=== PATIENT | female | born 1965 | race Caucasian/White ===

== ENCOUNTER 2017-08-19 12:54 | Emergency (ER) | payer OTHER ==
[2017-08-19 13:07] VITALS: BP 181/94
--- NOTE | 2017-08-19 14:35 | EDM.PDOC ---
ED HPI GENERAL MEDICAL PROBLEM - General Chief Complaint: MOVER HELPER Problem Stated Complaint: HEAVY MENSTRUAL BLEEDING Time Seen by Provider: 08/19/17 13:13 Source of Information: Reports: Patient, RN Notes Reviewed - History of Present Illness INITIAL COMMENTS - FREE TEXT/NARRATIVE: 52-year-old female comes in with abnormal vaginal bleeding. This started several days ago but became worse last evening, through the night and this morning. She states she had a "gush of blood and clots about 1-2 hours ago". She has changed several pads this past morning. She does not feel weak dizzy or lightheaded. She has been having occasional achy take cramps of the right lower pelvis in particular with some radiation to her back. No chest pain or difficulty breathing. No shoulder discomfort. No unusual weakness, lightheadedness or dizziness. She states her last menstrual period prior to this was about 7 months ago and that they had been quite irregular leading up to that time. States she has not seen a doctor or had a pelvic exam for about 20 years. Lower Abdominal Pain Score (Numeric/FACES): 6 - Related Data Allergies Allergy/AdvReac Type Severity Reaction Status Date / Time No Known Allergies Allergy Verified 08/19/17 13:03 Home Meds: Home Meds Metoprolol Tartrate 100 mg PO DAILY 08/19/17 [History] Potassium Chloride 10 meq PO DAILY 08/19/17 [History] Triamterene/Hydrochlorothiazid [Triamterene-HCTZ 37.5-25 MG] 1 tab PO DAILY [History] Past Medical History Cardiovascular History: Reports: Hypertension - Past Surgical History Female Surgical History: Reports: Tubal Ligation Social & Family History - Tobacco Use Smoking Status *Q: Current Every Day Smoker Years of Tobacco use: 30 Packs/Tins Daily: 1 - Recreational Drug Use Recreational Drug Use: No ED ROS GENERAL - Review of Systems Review Of Systems: See Below Constitutional: Denies: Fever, Chills HEENT: Denies: Throat Pain Respiratory: Denies: Shortness of Breath Cardiovascular: Denies: Chest Pain GI/Abdominal: Reports: Abdominal Pain (Achy lower abdominal and pelvic discomfort and cramping) : Reports: Other (Vaginal bleeding for 4 days, heavier yesterday and today with clots today) Musculoskeletal: Reports: No Symptoms Skin: Reports: No Symptoms Neurological: Reports: No Symptoms ED EXAM, RENAL/ - Physical Exam Exam: See Below General Appearance: Alert, No Apparent Distress Throat/Mouth: Normal Inspection, Normal Oropharynx Head: No: Facial Swelling Neck: Supple, Full Range of Motion Respiratory/Chest: No Respiratory Distress, Lungs Clear, Normal Breath Sounds Cardiovascular: Regular Rate, Rhythm GI/Abdominal: Soft, Non-Tender. No: Guarding, Rebound (Female) Exam: Vaginal Bleeding (There is start blood in the posterior vaginal vault, no clots, looks like there is some degree of bladder prolapse present, uterus does seem to be mildly enlarged, she does have some right adnexal tenderness.) Extremities: Normal Inspection, Normal Range of Motion Neurological: Alert, Oriented, No Motor/Sensory Deficits Skin Exam: Warm, Dry, Normal Color Course - Vital Signs Last Recorded V/S: Last Vital Signs Temp 97.2 F 08/19/17 13:04 Pulse 88 08/19/17 13:04 Resp BP 181/94 H 08/19/17 13:04 Pulse Ox 98 08/19/17 13:04 - Orders/Labs/Meds Labs: Laboratory Tests 08/19/17 08/19/17 Range/Units 13:30 13:30 WBC 12.32 H (3.98-10.04) K/mm3 RBC 4.33 (3.98-5.22) M/mm3 Hgb 13.7 (11.2-15.7) gm/L Hct 40.6 (34.1-44.9) % MCV 93.8 (79.4-94.8) fl MCH 31.6 (25.6-32.2) pg MCHC 33.7 (32.2-35.5) g/dl RDW Std Deviation 43.6 (36.4-46.3) fL Plt Count 284 (182-369) K/mm3 MPV 10.0 (9.4-12.3) fl Neut % (Auto) 78.1 H (34.0-71.1) % Lymph % (Auto) 14.0 L (19.3-51.7) % [place] % (Auto) 7.0 (4.7-12.5) % Eos % (Auto) 0.6 L (0.7-5.8) Baso % (Auto) 0.2 (0.1-1.2) % Neut # (Auto) 9.63 H (1.56-6.13) K/mm3 Lymph # (Auto) 1.72 (1.18-3.74) K/mm3 [place] # (Auto) 0.86 H (0.24-0.36) K/mm3 Eos # (Auto) 0.07 (0.04-0.36) K/mm3 Baso # (Auto) 0.03 (0.01-0.08) K/mm3 Sodium 139 (136-145) mEq/L Potassium 3.1 L (3.5-5.1) mEq/L Chloride 104 (98-107) mEq/L Carbon Dioxide 24 (21-32) mEq/L Anion Gap 14.1 (5-15) BUN 10 (7-18) mg/dL Creatinine 0.8 (0.55-1.02) mg/dL Est Cr Clr Drug Dosing 78.76 mL/min Estimated GFR (MDRD) > 60 (>60) mL/min BUN/Creatinine Ratio 12.5 L (14-18) Glucose 108 H (74-106) mg/dL Calcium 9.0 (8.5-10.1) mg/dL Total Bilirubin 0.6 (0.2-1.0) mg/dL AST 10 L (15-37) U/L ALT 13 L (14-59) U/L Alkaline Phosphatase 69 (46-116) U/L Total Protein 6.8 (6.4-8.2) g/dl Albumin 3.7 (3.4-5.0) g/dl Globulin 3.1 gm/dL Albumin/Globulin Ratio 1.2 (1-2) Departure - Departure Time of Disposition: 14:49 Disposition: Home, Self-Care 01 Condition: Fair Clinical Impression: Dysfunctional uterine bleeding - Discharge Information Instructions: Dysfunctional Uterine Bleeding Referrals: PCP,Not In Area [Primary Care Provider] - Forms: ED Department Discharge
== END 2017-08-19 15:30 | disposition home or self-care (01) ==
LOC: JD.ED 12:54
DX: N93.8 Other specified abnormal uterine and vaginal bleeding (principal); F17.210 Nicotine dependence, cigarettes, uncomplicated; I10 Essential (primary) hypertension; Z98.51 Tubal ligation status; Z79.899 Other long term (current) drug therapy
CPT/HCPCS: 36415; 80053; 85025; 99283; 99284

== ENCOUNTER → 2017-11-24 | Day surgery (SDC) | payer OTHER ==
[~2017-11-24] MED LIST: Acetaminophen/oxyCODONE 325-5 MG Tab PO ONE; Dexamethasone 4 MG/ML 5 ML MDV ONE; HYDROmorphone 0.5 MG/0.5 ML Syringe IVPUSH PRN; HYDROmorphone 1 MG/ML Syringe ONE; Hydrochlorothiazide/Triamterene 25-37.5 MG Cap PO SCH; Ketorolac 30 MG/ML SDV ONE; Lactated Ringers 1,000 ML IV SCH; Lactated Ringers 1,000 ML ONE; Lidocaine 1% 4 ML ONE; Lidocaine 1% with EPINEPHrine 1:100,000 20 ML MDV ONE; Lidocaine 1%/Sod Bicarbonate in NS 8.4% 1 ML Syringe IV PRN; METOPROLOL SUCCINATE 100 MG PO SCH; Metoprolol Tartrate 100 MG Tab PO SCH; Midazolam 1 MG/ML 2 ML SDV IVPUSH PRN; Midazolam 1 MG/ML 2 ML SDV ONE; Neostigmine Methylsulfate 1 MG/ML 5 ML Syringe ONE; Ondansetron 4 MG/2 ML SDV IVPUSH PRN; Ondansetron 4 MG/2 ML SDV ONE; Phenylephrine 1 MG in Sodium Chloride 0.9% 10 ML IV SCH; Potassium Chloride 10 MEQ Tab.ER PO SCH; Propofol 200 MG/20 ML SDV ONE; Rocuronium 50 MG/5 ML Vial ONE; Sodium Chloride 0.9% 10 ML Syringe FLUSH PRN; Sodium Chloride 0.9% 50 ML SDV ONE; ceFAZolin 1 GM Vial ONE; diphenhydrAMINE 50 MG/ML SDV IVPUSH PRN; ePHEDrine 50 MG/ML SDV IVPUSH PRN; ePHEDrine/Normal Saline 25 MG/5 ML Syringe ONE; fentaNYL 100 MCG/2 ML SDV IVPUSH PRN; fentaNYL 250 MCG/5 ML SDV ONE
[2017-11-24] MEDS: Lactated Ringers 1,000 ML IV SCH ×2 (06:55→12:57)
--- NOTE | 2017-11-24 07:24 | PCM.PREANE ---
Preanesthetic Assessment - Anesthesia/Transfusion/Family Hx Anesthesia History: Prior Anesthesia Without Reaction Family History of Anesthesia Reaction: No Transfusion History: No Prior Transfusion(s) Intubation History: Unknown - Review of Systems General: No Symptoms Pulmonary: No Symptoms (history of asthma/ smokes 1-2 packs/day times 30 years( 2016 quit)) Cardiovascular: No Symptoms (History of HTN), Palpitations (z), Dyspnea on Exertion Gastrointestinal: No Symptoms (GERD) Neurological: No Symptoms, Tingling (hand and feet at times) Other: Reports: Easy Bruising, Sinus Problem (sinus infections on occasion.) - Physical Assessment NPO Status Date: 11/23/17 NPO Status Time: 23:00 Pulse: 64 O2 Sat by Pulse Oximetry: 95 Respiratory Rate: 18 Blood Pressure: 155/91 Temperature: 37.5 C Height: 1.65 m Weight: 71.668 kg ASA Class: 2 Mental Status: Alert & Oriented x3 Airway Class: Mallampati = 2 Dentition: Reports: Normal Dentition, Caries Thyro-Mental Finger Breadths: 3 Mouth Opening Finger Breadths: 3 ROM/Head Extension: Full Lungs: Clear to Auscultation, Normal Respiratory Effort Cardiovascular: Regular Rate, Regular Rhythm, No Murmurs - Imaging/EKG Impressions: EKG: SRrate=64, anteroseptal infarct, old Q waves in V1 and V2, QT mildly prolonged - Allergies Allergies/Adverse Reactions: Allergies Allergy/AdvReac Type Severity Reaction Status Date / Time No Known Allergies Allergy Verified 11/20/17 13:03 - Anesthesia Plan Pre-Op Medication Ordered: Beta Tono Beta Tono: Metoprolol Med Last Dose Date: 11/24/17 Med Last Dose Time: 05:15 - Acknowledgements Anesthesia Type Planned: General Anesthesia Pt an Appropriate Candidate for the Planned Anesthesia: Yes Alternatives and Risks of Anesthesia Discussed w Pt/Guardian: Yes Pt/Guardian Understands and Agrees with Anesthesia Plan: Yes PreAnesthesia Questionnaire HEENT History: Reports: Impaired Vision Cardiovascular History: Reports: Hypertension Respiratory History: Reports: Asthma Gastrointestinal History: Reports: None Genitourinary History: Reports: None 3D DESIGNER History: Reports: Other (See Below) Other OB/BYN History: endometrial biopsy, abnormal menstrual bleeding, abdnormal perimenopausal bleeding Musculoskeletal History: Reports: None Neurological History: Reports: None Psychiatric History: Reports: None Endocrine/Metabolic History: Reports: None Hematologic History: Reports: None Immunologic History: Reports: None Oncologic (Cancer) History: Reports: None Dermatologic History: Reports: None - Past Surgical History Head Surgeries/Procedures: Reports: None HEENT Surgical History: Reports: Oral Surgery, Tonsillectomy Cardiovascular Surgical History: Reports: None Respiratory Surgical History: Reports: None GI Surgical History: Reports: None Female Surgical History: Reports: Tubal Ligation Endocrine Surgical History: Reports: None Neurological Surgical History: Reports: None Musculoskeletal Surgical History: Reports: None Oncologic Surgical History: Reports: None Dermatological Surgical History: Reports: None - SUBSTANCE USE Smoking Status *Q: Former Smoker Recreational Drug Use History: No - HOME MEDS Home Medications: Home Meds Metoprolol Tartrate 100 mg PO DAILY 08/19/17 [History] Potassium Chloride 10 meq PO DAILY 08/19/17 [History] Triamterene/Hydrochlorothiazid [Triamterene-HCTZ 37.5-25 MG] 1 tab PO DAILY [History] Ibuprofen [Ibuprofen] 800 mg PO TID PRN 11/20/17 [History] - CURRENT (IN HOUSE) MEDS Current Meds: Current Medications Lactated Ringer's (Ringers, Lactated) 1,000 mls @ 125 mls/hr IV ASDIRECTED VALDEZ Stop: 11/24/17 18:00 Lidocaine/Sodium Bicarbonate (Buffered Lidocaine 1% In Ns 8.4%) 0.25 ml IV ONETIME PRN PRN Reason: Prior to IV Start Stop: 11/24/17 18:00 Sodium Chloride (Saline Flush) 10 ml FLUSH ASDIRECTED PRN PRN Reason: Keep Vein Open Stop: 11/24/17 18:00 Discontinued Medications Cefazolin Sodium (Ancef) Confirm Administered Dose 2 gm .ROUTE .STK-MED ONE Stop: 11/24/17 06:38 Dexamethasone (Dexamethasone) Confirm Administered Dose 20 mg .ROUTE .STK-MED ONE Stop: 11/24/17 06:38 Fentanyl (Sublimaze) Confirm Administered Dose 250 mcg .ROUTE .STK-MED ONE Stop: 11/24/17 06:40 Hydromorphone HCl (Dilaudid) Confirm Administered Dose 1 mg .ROUTE .STK-MED ONE Stop: 11/24/17 06:39 Lidocaine HCl (Xylocaine-Mpf 1%) Confirm Administered Dose 4 mls @ as directed .ROUTE .STK-MED ONE Stop: 11/24/17 06:38 Lactated Ringer's (Ringers, Lactated) Confirm Administered Dose 1,000 mls @ as directed .ROUTE .STK-MED ONE Stop: 11/24/17 06:38 Ketorolac Tromethamine (Toradol) Confirm Administered Dose 30 mg .ROUTE .STK- MED ONE Stop: 11/24/17 06:38 Midazolam HCl (Versed 1 Mg/Ml) Confirm Administered Dose 2 mg .ROUTE .STK-MED ONE Stop: 11/24/17 06:40 Ondansetron HCl (Zofran) Confirm Administered Dose 4 mg .ROUTE .STK-MED ONE Stop: 11/24/17 06:38 Propofol (Diprivan 20 Ml) Confirm Administered Dose 200 mg .ROUTE .STK-MED ONE Stop: 11/24/17 06:39 Rocuronium [place] (Zemuron) Confirm Administered Dose 50 mg .ROUTE .STK-MED ONE Stop: 11/24/17 06:38
--- NOTE | 2017-11-24 11:07 | PCM.POSTAN ---
POST ANESTHESIA ASSESSMENT - MENTAL STATUS Mental Status: Alert - VITAL SIGNS Pulse Rate: 59 SaO2: 97 Resp Rate: 10 Blood Pressure: 119/60 Temperature: 36.5 C - RESPIRATORY Respiratory Status: Respiratory Rate WNL, Airway Patent, O2 Saturation Stable, Supplemental Oxygen - CARDIOVASCULAR CV Status: Pulse Rate WNL, Blood Pressure Stable - GASTROINTESTINAL GI Status: No Symptoms - POST OP HYDRATION Hydration Status: Adequate & Stable
--- NOTE | 2017-11-24 11:23 | PCM.OPNOTE ---
- General Post-Op/Procedure Note Date of Surgery/Procedure: 11/24/17 Operative Procedure(s): Total vaginal hysterectomy bilateral salpingo- oophorectomy 46844. Anterior-posterior colporrhaphy [id number] Pre Op Diagnosis: Abnormal uterine bleeding, abnormal perimenopausal bleeding, cystocele and rectocele with incomplete uterine prolapse. Post-Op Diagnosis: Same Anesthesia Technique: General ET Tube Primary Surgeon: Zander Olivares Secondary Surgeon: Srikanth Clement Anesthesia Provider: Mikayla Sosa Reason Lab Support Service Tech Was Necessary: Retraction, decrease comorbidity and co-mortality Role of Lab Support Service Tech: Retraction, decrease comorbidity and co-mortality Fluid Replacement, Intraop: 1,000 Output, Urine Amount: 125 EBL in mLs: 100 Drain/Tube Comments:: None Complications: None Condition: Good Free Text/Narrative:: Patient was transported to operating room #2 and placed under general anesthesia with endotracheal intubation the low dorsal lithotomy position. Prepared and draped in a sterile fashion. Examination under anesthesia had revealed incomplete uterine relaxation with cystocele and rectocele. SCDs in place and functioning prior surgery. Ancef 2 g given intravenously prior surgery. Timeout performed confirming name, date of , and procedure as total vaginal hysterectomy bilateral salpingo-oophorectomy anterior-posterior and posterior colporrhaphy. The cervix was injected with 20 mL of 0.25% lidocaine with epinephrine and multiple confluent areas around the cervix. Circumscribing the cervix with a sharp blade. Posterior colpotomy was performed. Grasping the uterosacral cardinal ligament bundle with the LigaSure crossclamping activating and incising on the left side and then right side and alternating proceeding cephalad crossclamping activating and incising until the triple pedicle was approximated crossclamped activated and incised removing the cervix and uterus. The anterior colpotomy was accomplished after crossclamping activating and incising the uterosacral cardinal ligament bundle's. The left tube and ovary identified (patient had had previous tubal ligation) remaining portion the left tube and ovary removed by crossclamping the infundibulopelvic ligament activating and incising with LigaSure. Same procedure was carried out on the right side. Hemostasis was complete no active bleeding the posterior vaginal cuff was closed running locking suture of 0 Monocryl. The anterior vaginal mucosa was grasped with 2 Allis clamps and 5 mL of 0.25% lidocaine with epinephrine injected for hydrodissection of the tissue so mucosa. The bladder was drained of 125 mL of urine. Incising with Metzenbaum scissors to the urethrovesical angle and incising the left and right laterally at the vaginal mucosa edge to develop a plane 2 reduced the cystocele. sutures of 0 Monocryl placed at the urethrovesical angle and 3 additional sutures placed proceeding towards the vaginal cuff. The cystocele was reduced without difficulty. Having reduced the cystocele the redundant vaginal mucosa was excised and the vaginal mucosa was approximated with 3-0 Monocryl running suture. The anterior vaginal mucosa was then approximated to the posterior vaginal mucosa with running, locking suture of 0 Monocryl. Sponge needle pack instrument and sharp count correct 2 prior to closure of the vaginal mucosa anteriorly and posteriorly. The posterior colporrhaphy was then performed by grasping at approximately 5 and 6:00 at the introitus with Allis clamps and injecting 15 mL of 0.25% lidocaine with epinephrine for hydrodissection and postoperative pain management. A "peterson" shaped incision made with a #15 blade removing the excess tissue at the perineal body and introitus, undermining with Metzenbaum scissors to the apex of the rectocele approximately one half of the way up the vaginal canal. The planes were obtained with Metzenbaum scissors and pushing the rectocele posteriorly it was reduced without difficulty plication sutures of 0 Monocryl placed and the rectocele was reduced and the perineoplasty was completed with subcuticular suturing of 3-0 Monocryl. The vaginal mucosa was also closed with 3-0 Monocryl running suture. No blood transfusions were required patient tolerated the procedure well prior to transport to postanesthesia care unit 120 mL of this water instilled into the bladder to assist in voiding postop. I talked with the patient's and son all questions answered voiced satisfaction. Given prescription for Percocet 5/325 dispense 20 sig 1-2 by mouth every 6-8 hours when necessary pain, also Zofran and ODT 4 mg sublingual every 4 hours when necessary nausea dispense 20, Colace 100 mg twice a day dispense 60 take for 1 full month.
--- NOTE | 2017-11-24 11:43 | PCM48HPAN ---
Post Anesthesia Note - EVALUATION WITHIN 48HRS OF ANESTHETIC Vital Signs in Normal Range: Yes Patient Participated in Evaluation: Yes Respiratory Function Stable: Yes Airway Patent: Yes Cardiovascular Function Stable: Yes Hydration Status Stable: Yes Pain Control Satisfactory: Yes Nausea and Vomiting Control Satisfactory: Yes Mental Status Recovered: Yes
--- NOTE | 2017-11-24 16:30 | PCM.SN ---
- Free Text/Narrative Note: DOS Afebrile. Acute urinary retention. Urecholine 10 m g hourly until 1700 (6 doses ) then 10 mg po at 2300 and 0500. Bladder scan after each voiding and if >150 ml straight (in and out) cath. KVO IV. Routine VS. Regular diet. Alternate Motrin 600 mg po q6h and Percocet 5/325 1-2 po q6h. Colace 100 mg now and has the bid.
[2017-11-24] MEDS: Ibuprofen 600 MG Tab PO PRN (17:49)
[2017-11-24] MEDS: Acetaminophen/oxyCODONE 325-5 MG Tab PO PRN (20:57)
[2017-11-24] MEDS: Docusate Sodium 100 MG Cap PO SCH (20:57)
[2017-11-24] MEDS: Aluminum Hydroxide/Magnesium Hydroxide/Simethicone Susp 30 ML Cup PO PRN (22:33)
[2017-11-25] MEDS: Ibuprofen 600 MG Tab PO PRN ×2 (00:27→05:52)
[2017-11-25] MEDS: Acetaminophen/oxyCODONE 325-5 MG Tab PO PRN ×2 (03:26→10:14)
[2017-11-25 08:21] VITALS: BP 123/93
[2017-11-25] MEDS: Docusate Sodium 100 MG Cap PO SCH (10:13)
--- NOTE | 2017-11-25 10:19 | PCM.SN ---
- Free Text/Narrative Note: Patient extended floor recovery. Voiding now. Will dismiss and has follow up in clinic 2 weeks.
[2017-11-25] MEDS: Aluminum Hydroxide/Magnesium Hydroxide/Simethicone Susp 30 ML Cup PO PRN (10:37)
== END | disposition home or self-care (01) ==
LOC: JD.SDS 06:46
PROVIDERS: ATTEND Obstetrics & Gynecology
DX: N84.0 Polyp of corpus uteri (principal); N83.8 Other noninflammatory disorders of ovary, fallopian tube and broad ligament; N81.2 Incomplete uterovaginal prolapse; I10 Essential (primary) hypertension; Z79.2 Long term (current) use of antibiotics; Z98.51 Tubal ligation status; F17.210 Nicotine dependence, cigarettes, uncomplicated
CPT/HCPCS: 36415; 51798; 57260; 58262; 80053; 84702; 85025; 86850; 86900; 86901; 93005; A9270; J0690; J1100; J1170; J1885; J2250; J2405; J2710; J3010; J7050; J7120; 00942; J2001; J2704

== ENCOUNTER 2022-02-24 18:40 | Emergency (ER) | payer BC ==
[2022-02-24 19:48] VITALS: BP 174/102; PULSE 63
== END 2022-02-24 20:20 | disposition home or self-care (01) ==
LOC: JD.ED 18:40
DX: S61.212A Laceration without foreign body of right middle finger without damage to nail, initial encounter (principal); I10 Essential (primary) hypertension; Z79.899 Other long term (current) drug therapy; W26.8XXA Contact with other sharp object(s), not elsewhere classified, initial encounter
CPT/HCPCS: 12001; 99282; 99283

== ENCOUNTER 2023-03-19 06:56 | Day surgery (SDC) | payer BC ==
[~2023-03-19 06:56] MED LIST changes: -Acetaminophen/oxyCODONE 325-5 MG Tab PO ONE; -Dexamethasone 4 MG/ML 5 ML MDV ONE; -HYDROmorphone 0.5 MG/0.5 ML Syringe IVPUSH PRN; -HYDROmorphone 1 MG/ML Syringe ONE; -Hydrochlorothiazide/Triamterene 25-37.5 MG Cap PO SCH; -Ketorolac 30 MG/ML SDV ONE; -Lactated Ringers 1,000 ML ONE; -Lidocaine 1% 4 ML ONE; -Lidocaine 1% with EPINEPHrine 1:100,000 20 ML MDV ONE; +Lidocaine 1%/Sod Bicarbonate in NS 8.4% 1 ML Syringe IDERM PRN; -Lidocaine 1%/Sod Bicarbonate in NS 8.4% 1 ML Syringe IV PRN; -METOPROLOL SUCCINATE 100 MG PO SCH; -Metoprolol Tartrate 100 MG Tab PO SCH; -Midazolam 1 MG/ML 2 ML SDV IVPUSH PRN; -Midazolam 1 MG/ML 2 ML SDV ONE; -Neostigmine Methylsulfate 1 MG/ML 5 ML Syringe ONE; -Ondansetron 4 MG/2 ML SDV IVPUSH PRN; -Ondansetron 4 MG/2 ML SDV ONE; -Phenylephrine 1 MG in Sodium Chloride 0.9% 10 ML IV SCH; -Potassium Chloride 10 MEQ Tab.ER PO SCH; -Propofol 200 MG/20 ML SDV ONE; -Rocuronium 50 MG/5 ML Vial ONE; +Sodium Chloride 0.9% 10 ML Syringe FLUSH SCH; -Sodium Chloride 0.9% 50 ML SDV ONE; -ceFAZolin 1 GM Vial ONE; -diphenhydrAMINE 50 MG/ML SDV IVPUSH PRN; -ePHEDrine 50 MG/ML SDV IVPUSH PRN; -ePHEDrine/Normal Saline 25 MG/5 ML Syringe ONE; -fentaNYL 100 MCG/2 ML SDV IVPUSH PRN; -fentaNYL 250 MCG/5 ML SDV ONE
[2023-03-19] MEDS ORDERED: fentaNYL 100 MCG/2 ML SDV ONE (07:30)
[2023-03-19] MEDS ORDERED: Midazolam 1 MG/ML 2 ML SDV ONE (07:30)
[2023-03-19] MEDS ORDERED: Etomidate 2 MG/ML 20 ML SDV IVPUSH ONE (07:30)
[2023-03-19 10:31] VITALS: BP 138/74; PULSE 70
== END 2023-03-19 09:15 | disposition home or self-care (01) ==
LOC: JD.SDS 06:56
PROVIDERS: ATTEND Surgery
DX: K29.50 Unspecified chronic gastritis without bleeding (principal); K44.9 Diaphragmatic hernia without obstruction or gangrene; K21.9 Gastro-esophageal reflux disease without esophagitis; U07.1 COVID-19; E78.00 Pure hypercholesterolemia, unspecified; I10 Essential (primary) hypertension; E87.5 Hyperkalemia; E55.9 Vitamin D deficiency, unspecified; J45.909 Unspecified asthma, uncomplicated; Z91.012 Allergy to eggs; Z79.899 Other long term (current) drug therapy; Z90.710 Acquired absence of both cervix and uterus; F17.210 Nicotine dependence, cigarettes, uncomplicated
CPT/HCPCS: 43239; J2250; J3010; J3490; J7120; 00731

== ENCOUNTER → 2023-09-29 | Day surgery (SDC) | payer BC ==
[~2023-09-29] MED LIST changes: +Famotidine 20 MG/2 ML SDV IVPUSH ONE; +Lidocaine 1% 4 ML ONE; -Lidocaine 1%/Sod Bicarbonate in NS 8.4% 1 ML Syringe IDERM PRN; +Midazolam 1 MG/ML 2 ML SDV ONE; +Ondansetron 4 MG/2 ML SDV ONE; +Propofol 200 MG/20 ML SDV ONE; +Simethicone 80 MG Tab.Chew PO SCH
[2023-09-29 09:32] VITALS: BP 124/78; PULSE 78
== END | disposition home or self-care (01) ==
LOC: JD.SDS 06:55
PROVIDERS: ATTEND Surgery
DX: K62.1 Rectal polyp (principal); I10 Essential (primary) hypertension; E78.00 Pure hypercholesterolemia, unspecified; J45.909 Unspecified asthma, uncomplicated; K21.9 Gastro-esophageal reflux disease without esophagitis; G47.00 Insomnia, unspecified; M54.9 Dorsalgia, unspecified; G89.29 Other chronic pain; E55.9 Vitamin D deficiency, unspecified; Z79.899 Other long term (current) drug therapy; Z91.012 Allergy to eggs; Z91.018 Allergy to other foods; Z87.891 Personal history of nicotine dependence; Z79.84 Long term (current) use of oral hypoglycemic drugs
CPT/HCPCS: 00811; A9270-GY; J2250; J2405; J2704; J3490; J7120

== ENCOUNTER 2023-10-01 14:13 | Emergency (ER) | payer BC ==
[2023-10-01 15:23] LABS: BASOPHILS ABSOLUTE AUTO 0.1 K/mm3 (0.0-0.2); BASOPHILS PERCENT AUTO 0.7 % (0.0-1.0); EOSINOPHILS ABSOLUTE AUTO 0.1 K/mm3 (0.0-0.4); EOSINOPHILS PERCENT AUTO 0.8 % (0.0-6.0); HEMATOCRIT 38.5 % (37.0-47.0); HEMOGLOBIN 13.4 gm/dl (12.0-16.0); IMMATURE GRAN ABSOLUTE AUTO 0.02 K/mm3 (0.00-0.05); IMMATURE GRAN PERCENT AUTO 0.3 % (0.0-0.4); LYMPHOCYTES ABSOLUTE AUTO 2.2 K/mm3 (1.0-4.8); LYMPHOCYTES PERCENT AUTO 28.7 % (24.0-44.0); MEAN CORPUSCULAR HEMOGLOBIN 31.2 pg (28.0-32.0); MEAN CORPUSCULAR HGB CONC 34.8 g/dl (32.0-36.0); MEAN CORPUSCULAR VOLUME 89.7 fl (83.0-99.0); MEAN PLATELET VOLUME 9.4 fl (9.4-12.3); MONOCYTES ABSOLUTE AUTO 0.8 K/mm3 (0.0-0.8); MONOCYTES PERCENT AUTO 10.2 % (0.0-8.0); NEUTROPHILS ABSOLUTE AUTO 4.5 K/mm3 (1.8-7.7); NEUTROPHILS PERCENT AUTO 59.3 % (41.0-71.0); PLATELET COUNT,PLT 253 K/mm3 (150-400); RED BLOOD CELL COUNT 4.29 M/mm3 (4.10-5.30); WHITE BLOOD CELL COUNT,WBC 7.57 K/mm3 (3.9-11.3)
[2023-10-01 15:56] LABS: A/G RATIO 1.1 (1-2); ALBUMIN 3.8 g/dl (3.4-5.0); ANION GAP 13.8 (5-15); BILIRUBIN TOTAL 0.8 mg/dL (0.2-1.0); BUN/CREATININE RATIO 15.6 (14-18); C-REACTIVE PROTEIN 3.5 mg/dL (<1.0); CALCIUM 9.3 mg/dL (8.5-10.1); CREATININE 0.9 mg/dL (0.55-1.02); EST CRCL DRUG DOSING (CG) 65.34 mL/min; POTASSIUM,K 2.8 mEq/L (3.5-5.1); PROTEIN TOTAL,TP 7.3 g/dl (6.4-8.2)
[2023-10-01] MEDS ORDERED: Magnesium Citrate Solution 296 ML Bottle PO ONE (16:13)
[2023-10-01] MEDS ORDERED: Potassium Chloride 20 MEQ Tab.ER PO ONE (16:21)
[2023-10-01 17:01] VITALS: BP 131/87; PULSE 88
== END 2023-10-01 16:40 | disposition home or self-care (01) ==
LOC: JD.ED 14:13
DX: E87.6 Hypokalemia (principal); K59.00 Constipation, unspecified; I10 Essential (primary) hypertension; E78.00 Pure hypercholesterolemia, unspecified; Z90.710 Acquired absence of both cervix and uterus; Z79.899 Other long term (current) drug therapy; Z91.018 Allergy to other foods
CPT/HCPCS: 36415; 74019; 80053; 85025; 86140; 99284; A9270; 99283

== ENCOUNTER 2025-10-10 11:01 | Observation (INO) | payer BC ==
[~2025-10-10 11:01] MED LIST changes: -Famotidine 20 MG/2 ML SDV IVPUSH ONE; -Lactated Ringers 1,000 ML IV SCH; -Lidocaine 1% 4 ML ONE; -Midazolam 1 MG/ML 2 ML SDV ONE; -Ondansetron 4 MG/2 ML SDV ONE; -Propofol 200 MG/20 ML SDV ONE; -Simethicone 80 MG Tab.Chew PO SCH; -Sodium Chloride 0.9% 10 ML Syringe FLUSH SCH
[2025-10-10] MEDS: Lactated Ringers 1,000 ML IV SCH (11:20)
[2025-10-10] MEDS ORDERED: propofoL 500 MG/50 ML 50 ML ONE ×2 (11:35→13:29)
[2025-10-10] MEDS ORDERED: Ondansetron 4 MG/2 ML SDV ONE (11:39)
[2025-10-10] MEDS ORDERED: Dexamethasone 4 MG/ML 5 ML MDV ONE (11:39)
[2025-10-10] MEDS ORDERED: Ketorolac 30 MG/ML SDV ONE (11:39)
[2025-10-10] MEDS ORDERED: dexmedeTOMIDine HCl 200 MCG/2 ML SDV ONE (11:39)
[2025-10-10] MEDS ORDERED: fentaNYL 250 MCG/5 ML SDV ONE (11:42)
[2025-10-10] MEDS ORDERED: Propofol 200 MG/20 ML SDV ONE ×3 (11:43→14:53)
[2025-10-10] MEDS ORDERED: Lactated Ringers 1,000 ML ONE (13:16)
[2025-10-10] MEDS: EPINEPHrine 1 MG/ML SDV ONE (16:15)
[2025-10-10] MEDS ORDERED: diphenhydrAMINE 50 MG/ML SDV IVPUSH PRN (16:22)
[2025-10-10] MEDS ORDERED: Ondansetron 4 MG Tab.DIS PO PRN (16:23)
[2025-10-10] MEDS ORDERED: fentaNYL 100 MCG/2 ML SDV IVPUSH PRN (16:31)
[2025-10-10] MEDS: Sodium Chloride 0.9% 10 ML Syringe FLUSH SCH (16:51)
[2025-10-10] MEDS: Benzocaine/Cetylpyridinium/Menthol Lozenge MUCMEM PRN (18:11)
[2025-10-11 04:39] LABS: MEAN PLATELET VOLUME 10.1 fl (9.4-12.3); NRBC ABSOLUTE 0.00 (0.00-0.02); NRBC PERCENT 0.0 % (0.0-0.2); PLATELET COUNT,PLT 243 K/mm3 (150-400); RED BLOOD CELL COUNT 3.68 M/mm3 (4.10-5.30); WHITE BLOOD CELL COUNT,WBC 15.38 K/mm3 (3.9-11.3)
[2025-10-11 05:08] LABS: BLOOD UREA NITROGEN,BUN 18.0 mg/dL (7-18); CARBON DIOXIDE,CO2 27.0 mEq/L (21-32); CHLORIDE,CL 104.0 mEq/L (98-107); CREATININE 0.7 mg/dL (0.55-1.02); EST CRCL DRUG DOSING (CG) 82.01 mL/min; ESTIMATED GFR 100.0 mL/min (>60); GLUCOSE RANDOM 139.0 mg/dL (70-99); POTASSIUM,K 3.7 mEq/L (3.5-5.1); SODIUM,NA 140.0 mEq/L (136-145)
[2025-10-11] MEDS: Formoterol/Mometasone 200-5 MCG 8.8 GM Inhaler INH SCH (08:22)
[2025-10-12] MEDS: LORazepam 2 MG/ML SDV IVPUSH ONE (08:19)
[2025-10-12] MEDS: Ketorolac 15 MG/ML SDV IVPUSH SCH (08:40)
[2025-10-12] MEDS: Formoterol/Mometasone 200-5 MCG 8.8 GM Inhaler INH SCH (09:59)
[2025-10-12 14:10] VITALS: BP 114/65; PULSE 71
== END 2025-10-12 12:23 | disposition home or self-care (01) ==
LOC: JD.SDS 11:01 → JD.MS 16:14 → JD.SDS 10-11 23:39 → JD.MS 10-11 23:39
PROVIDERS: ADMIT Surgery; ATTEND Surgery
DX: K44.9 Diaphragmatic hernia without obstruction or gangrene (principal); K25.9 Gastric ulcer, unspecified as acute or chronic, without hemorrhage or perforation; I10 Essential (primary) hypertension; Z91.018 Allergy to other foods; Z79.899 Other long term (current) drug therapy; Z87.891 Personal history of nicotine dependence
CPT/HCPCS: 36415; 71045; 71045-26; 80048; 85027; 93005; 94640; 94667; 94668; 94761; 96372; 96374; 96375; 96376; A9270-GY; C1781; G0378; J0169; J0665; J0690; J1100; J1171; J1650; J1885; J2060; J2405; J2704; J3010; J3490; J7120

== ENCOUNTER 2025-10-15 18:00 | Emergency (ER) | payer BC ==
[2025-10-15] MEDS ORDERED: Sodium Chloride 0.9% 10 ML Syringe FLUSH PRN (18:43)
[2025-10-15 19:18] LABS: BASOPHILS ABSOLUTE AUTO 0.1 K/mm3 (0.0-0.2); BASOPHILS PERCENT AUTO 0.6 % (0.0-1.0); EOSINOPHILS ABSOLUTE AUTO 0.1 K/mm3 (0.0-0.4); EOSINOPHILS PERCENT AUTO 1.4 % (0.0-6.0); IMMATURE GRAN ABSOLUTE AUTO 0.06 K/mm3 (0.00-0.05); IMMATURE GRAN PERCENT AUTO 0.7 % (0.0-0.4); LYMPHOCYTES ABSOLUTE AUTO 1.4 K/mm3 (1.0-4.8); LYMPHOCYTES PERCENT AUTO 15.7 % (24.0-44.0); MEAN PLATELET VOLUME 9.2 fl (9.4-12.3); MONOCYTES ABSOLUTE AUTO 1.0 K/mm3 (0.0-0.8); MONOCYTES PERCENT AUTO 11.3 % (0.0-8.0); NEUTROPHILS ABSOLUTE AUTO 6.2 K/mm3 (1.8-7.7); NEUTROPHILS PERCENT AUTO 70.3 % (41.0-71.0); NRBC ABSOLUTE 0.00 (0.00-0.02); NRBC PERCENT 0.0 % (0.0-0.2); PLATELET COUNT,PLT 329 K/mm3 (150-400); RED BLOOD CELL COUNT 4.20 M/mm3 (4.10-5.30); WHITE BLOOD CELL COUNT,WBC 8.85 K/mm3 (3.9-11.3)
[2025-10-15 19:43] LABS: LACTIC ACID 1.3 mmol/L (0.4-2.0)
[2025-10-15 19:49] LABS: A/G RATIO 0.7 (1-2); ALANINE AMINOTRANSFERASE,ALT 29.0 U/L (14-59); ASPARTATE AMNIOTRANSFERASE,AST 15.0 U/L (15-37); BILIRUBIN TOTAL 0.9 mg/dL (0.2-1.0); BLOOD UREA NITROGEN,BUN 20.0 mg/dL (7-18); CARBON DIOXIDE,CO2 26.0 mEq/L (21-32); CHLORIDE,CL 103.0 mEq/L (98-107); CREATININE 0.7 mg/dL (0.55-1.02); EST CRCL DRUG DOSING (CG) 82.01 mL/min; ESTIMATED GFR 100.0 mL/min (>60); GLUCOSE RANDOM 92.0 mg/dL (70-99); POTASSIUM,K 2.9 mEq/L (3.5-5.1); PROTEIN TOTAL,TP 7.1 g/dl (6.4-8.2); SODIUM,NA 142.0 mEq/L (136-145)
[2025-10-15] MEDS ORDERED: Vitamins A and D Oint 42.5 GM Tube TOP PRN (20:00)
[2025-10-15] MEDS: Potassium Bicarbonate/Cit Ac 20 MEQ Effervescent Tab PO ONE (20:23)
[2025-10-15 21:09] VITALS: BP 165/81; PULSE 65
== END 2025-10-15 21:00 | disposition home or self-care (01) ==
LOC: JD.ED 18:00
DX: K59.00 Constipation, unspecified (principal); E87.6 Hypokalemia; I10 Essential (primary) hypertension; J45.909 Unspecified asthma, uncomplicated; Z86.16 Personal history of COVID-19; Z90.710 Acquired absence of both cervix and uterus; Z91.018 Allergy to other foods
CPT/HCPCS: 36415; 80053; 83605; 83735; 85025; 99283; A9270